=== PATIENT | female | born 1970 | race American Indian/Alaskan Native ===

== ENCOUNTER 2016-11-26 22:23 | Emergency (ER) | payer MEDICARE ==
[2016-11-26] MEDS ORDERED: NACL 0.9% 1000 ML 1,000 ML IV ONE (22:30)
[2016-11-26] MEDS ORDERED: ATIVAN IV ONE (22:30)
[2016-11-26 23:08] LABS: Basophils % (Auto) 0.5 % (0.0-1.8); Eosinophils % (Auto) 0.8 % (0.0-4.3); Hematocrit 41.8 % (30.3-42.9); Hemoglobin 13.5 gm/dl (10.1-14.3); Mean Corpuscular HGB Conc 32 % (30-34); Mean Corpuscular Hemoglobin 30 pg (28-32); Mean Corpuscular Volume 94 fl (79-97); Platelet Count 227 K/mm3 (140-440); Red Blood Count 4.44 M/mm3 (3.65-5.03); White Blood Count 11.9 K/mm3 (4.5-11.0)
--- NOTE | 2016-11-27 00:01 | Cat Scan Report ---
FINAL REPORT PROCEDURE: CT HEAD/BRAIN WO CON TECHNIQUE: Computerized tomography of the head was performed without contrast material. HISTORY: Seizure. COMPARISON: No prior studies are available for comparison. FINDINGS: Skull and scalp: Normal. Paranasal sinuses: Normal. Ventricles and subarachnoid spaces: Normal. Cerebrum: No evidence of hemorrhage, acute infarction or mass . Cerebellum and brainstem: No evidence of hemorrhage, acute infarction or mass. Vasculature: Normal. Comments: None. IMPRESSION: No CT evidence of acute intracranial pathology. Consider MRI of the brain for further characterization if there is continued clinical concern and if patient has no contraindication to MRI.
--- NOTE | 2016-11-27 00:30 | Emergency Department Report ---
ED Seizure HPI - General Chief Complaint: Abdominal Pain Stated Complaint: N&V Time Seen by Provider: 11/26/16 22:30 Source: EMS Mode of arrival: Ambulatory Limitations: No Limitations - History of Present Illness MD Complaint: seizure -: Sudden Description of Episode: loss of consciousness, tonic-clonic movement Duration of Episode: 30 -: second(s) Witnessed:: Yes Trauma: No Seizure History: known seizure disorder, history of non-compliance Place: home Possible Precipitating Event: lack of sleep, stress Associated Symptoms: denies: chest pain, confusion, cough, diaphoresis, fever/ chills, loss of appetite, malaise, rash, shortness of breath, syncope, weakness , tongue injury, shoulder dislocation Treatments Prior to Arrival: none - Related Data Previous Rx's Medication Instructions Recorded Last Taken Type ALPRAZolam [Xanax TAB] 0.5 mg PO BID PRN #14 tab 11/27/16 Unknown Rx Lisinopril [Zestril TAB] 10 mg PO QDAY #60 tablet 11/27/16 Unknown Rx amLODIPine [Norvasc] 10 mg PO DAILY #60 tab 11/27/16 Unknown Rx levETIRAcetam [Keppra TAB] 500 mg PO BID #40 tablet 11/27/16 Unknown Rx oxyCODONE /ACETAMINOPHEN [Percocet 1 tab PO BID #14 tablet 11/27/16 Unknown Rx 5/325 mg] ED Review of Systems ROS: Stated complaint: N&V Other details as noted in HPI Constitutional: denies: chills, fever Eyes: denies: eye pain, eye discharge, vision change ENT: denies: ear pain, throat pain Respiratory: denies: cough, shortness of breath, wheezing Cardiovascular: denies: chest pain, palpitations Endocrine: no symptoms reported Gastrointestinal: denies: abdominal pain, nausea, diarrhea Genitourinary: denies: urgency, dysuria, discharge Musculoskeletal: denies: back pain, joint swelling, arthralgia Skin: denies: rash, lesions Neurological: denies: headache, weakness, paresthesias Psychiatric: denies: anxiety, depression Hematological/Lymphatic: denies: easy bleeding, easy bruising ED Past Medical Hx - Past Medical History Previous Medical History?: Yes Hx Hypertension: Yes Additional medical history: LUPUS, SEIZURES, ULCERS, FIBROIDS, CAD - Surgical History Additional Surgical History: ANGIOCATH - Social History Smoking Status: Current Every Day Smoker Substance Use Type: None - Medications Home Medications: Home Medications Medication Instructions Recorded Confirmed Last Taken Type ALPRAZolam [Xanax TAB] 0.5 mg PO BID PRN #14 tab 11/27/16 Unknown Rx Lisinopril [Zestril TAB] 10 mg PO QDAY #60 tablet 11/27/16 Unknown Rx amLODIPine [Norvasc] 10 mg PO DAILY #60 tab 11/27/16 Unknown Rx levETIRAcetam [Keppra TAB] 500 mg PO BID #40 tablet 11/27/16 Unknown Rx oxyCODONE /ACETAMINOPHEN [Percocet 1 tab PO BID #14 tablet 11/27/16 Unknown Rx 5/325 mg] ED Physical Exam - General Limitations: No Limitations General appearance: alert, in no apparent distress - Head Head exam: Present: atraumatic, normocephalic - Eye Eye exam: Present: normal appearance, PERRL - ENT ENT exam: Present: mucous membranes moist - Neck Neck exam: Present: normal inspection - Respiratory Respiratory exam: Present: normal lung sounds bilaterally. Absent: respiratory distress - Cardiovascular Cardiovascular Exam: Present: regular rate, normal rhythm. Absent: systolic murmur, diastolic murmur, rubs, gallop - GI/Abdominal GI/Abdominal exam: Present: soft, normal bowel sounds - Extremities Exam Extremities exam: Present: normal inspection - Back Exam Back exam: Present: normal inspection - Neurological Exam Neurological exam: Present: alert, oriented X3 - Psychiatric Psychiatric exam: Present: normal affect, normal mood - Skin Skin exam: Present: warm, dry, intact, normal color. Absent: rash ED Course Vital Signs 11/26/16 11/26/16 11/26/16 22:14 22:22 22:27 Temperature 98.1 F Pulse Rate 85 Respiratory 26 H Rate Blood Pressure 116/79 165/93 O2 Sat by Pulse 100 100 100 Oximetry 11/26/16 11/26/16 11/26/16 22:30 22:39 22:40 Temperature Pulse Rate 77 80 Respiratory 9 L 11 L Rate Blood Pressure 151/97 O2 Sat by Pulse 94 100 100 Oximetry 11/26/16 11/26/16 23:40 23:50 Temperature Pulse Rate 95 H 96 H Respiratory 18 15 Rate Blood Pressure 130/66 130/66 O2 Sat by Pulse 98 100 Oximetry ED Medical Decision Making - Lab Data Result diagrams: 11/26/16 22:45 11/27/16 00:04 Critical care attestation.: If time is entered above; I have spent that time in minutes in the direct care of this critically ill patient, excluding procedure time. ED Disposition Clinical Impression: Abdominal pain, Seizure Disposition: DISCHARGED TO HOME OR SELFCARE Is pt being admited?: No Does the pt Need Aspirin: No Condition: Good Instructions: Abdominal Pain (ED) Prescriptions: ALPRAZolam [Xanax TAB] 0.5 mg PO BID PRN #14 tab PRN Reason: Anxiety amLODIPine [Norvasc] 10 mg PO DAILY #60 tab levETIRAcetam [Keppra TAB] 500 mg PO BID #40 tablet Lisinopril [Zestril TAB] 10 mg PO QDAY #60 tablet oxyCODONE /ACETAMINOPHEN [Percocet 5/325 mg] 1 tab PO BID #14 tablet Referrals: PRIMARY CARE, [Primary Care Provider] - 3-5 Days Forms: Methotrexate D/C Instructions Time of Disposition: 01:24
[2016-11-27 00:39] LABS: Urine Drugs of Abuse Note Disclamer
[2016-11-27 01:00] LABS: Alanine Aminotransferase 53 units/L (7-56); Albumin 3.7 g/dL (3.9-5); Albumin/Globulin Ratio 1.3 %; Alkaline Phosphatase 64 units/L (35-129); Anion Gap 14 mmol/L; BUN/Creatinine Ratio 18.57; Bilirubin,Total 0.3 mg/dL (0.1-1.2); Blood Urea Nitrogen 13 mg/dL (7-17); Calcium 7.9 mg/dL (8.4-10.2); Carbon Dioxide 24 mmol/L (22-30); Glucose 156 mg/dL (65-100); Potassium 3.4 mmol/L (3.6-5.0); Sodium 138 mmol/L (137-145); Total Protein 6.5 g/dL (6.3-8.2)
[2016-11-27 01:00] LABS: Bilirubin,Urine NEG (Negative); Blood,Urine NEG (Negative); Ketones,Urine NEG (Negative); Leukocyte Esterase,Urine NEG (Negative); Mucus,Urine FEW /HPF; Nitrite,Urine NEG (Negative); Protein,Urine <15 mg/dL mg/dL (Negative); Urobilinogen,Urine < 2.0 mg/dL (<2.0)
[2016-11-27] MEDS ORDERED: TORADOL IV ONE (01:28)
[2016-11-27] MEDS ORDERED: DILAUDID IV ONE (01:28)
[2016-11-27] MEDS ORDERED: ZOFRAN IV ONE (01:28)
[2016-11-27 02:09] VITALS: BP 136/84
== END 2016-11-27 02:09 | disposition home or self-care (01) ==
LOC: ED 22:23
DX: R56.9 Unspecified convulsions (principal); R10.9 Unspecified abdominal pain; I10 Essential (primary) hypertension; M32.9 Systemic lupus erythematosus, unspecified; I25.10 Atherosclerotic heart disease of native coronary artery without angina pectoris; F17.200 Nicotine dependence, unspecified, uncomplicated
CPT/HCPCS: 36415; 70450; 80053; 80164; 80307; 81001; 85025; 93005; 93010; 96361; 96374; 96375; 99284; J1170; J1885; J2060; J2405; J7030